=== PATIENT | male | born 1990 | race Caucasian/White ===

== ENCOUNTER 2017-09-22 09:30 | Emergency (ER) | payer OTHER ==
[~2017-09-22] VITALS: Ht 177.8 cm; Wt 80.0 kg
[2017-09-22 09:36] VITALS: BP 133/80; PULSE 97; RESP 16; TEMP 98.7; O2SAT 97
[2017-09-22] MEDS ORDERED: GELATIN 12 MM/7 MM FOAM TOPICAL ONE (10:00)
--- NOTE | 2017-09-22 10:29 | PD ---
HPI Chief Complaint: Laceration/Skin Injury Time Seen by Provider: 09:47 Travel History International Travel<30 days: No Contact w/Intl Traveler<30days: No Traveled to known affect area: No History of Present Illness HPI 27-year-old male with laceration to the right pinky toe. Patient reports he dropped a heavy table onto the toe yesterday at approximately 12 PM the area has continued to bleed prompting his visit today. He denies pain in the toe. He reports his tetanus immunization is up-to-date. He does not believe he broke toe. It was a glass table that fell onto the toe but the glass did not shatter. He does not believe there is foreign body. He is refusing x-rays. [facility] Past Medical History Medical History: Denies Significant Hx Influenza Vaccination: No Past Surgical History Surgical History: No Previous Surgery Social History Alcohol Use: Yes (occ) Tobacco Use: Yes (/ ppd) Substance Use: No Allergies-Medications (Allergen,Severity, Reaction): Coded Allergies: No Known Allergies (Unverified , 09/22/17) Reported Meds & Prescriptions Reported Meds & Active Scripts Active No Active Prescriptions or Reported Medications Review of Systems Except as stated in HPI: all other systems reviewed are Neg Physical Exam Narrative GENERAL: Alert male in no distress. SKIN: Warm and dry.1 CM laceration to the medial aspect of the right pinky toe. HEAD: Normocephalic. EYES: No scleral icterus. No injection or drainage. NECK: Supple, trachea midline. No JVD or lymphadenopathy. MUSCULOSKELETAL: No cyanosis, or edema. Right lower extremity: 1 cm laceration to the medial aspect of the right fifth digit. Active bleeding present. No foreign body visualized. No bony tenderness in the digit. Deformity. Normal sensation and brisk cap refill. Data Data Last Documented VS Vital Signs Date Time Temp Pulse Resp B/P (MAP) Pulse Ox O2 Delivery O2 Flow Rate FiO2 09/22/17 09:36 98.7 97 16 133/80 (97) 97 Orders Orders Gelatin 12 Mm/7 Mm Top (Gelfoam 12 Mm/7 (09/22/17 10:00) MDM Medical Decision Making Medical Screen Exam Complete: Yes Emergency Medical Condition: Yes Differential Diagnosis To laceration, toe fracture, contusion Narrative Course 27-year-old male with a laceration to the right fifth toe after table fell onto the foot yesterday afternoon. The area has continued to bleed prompting his visit today. He has a 1 cm laceration to the right fifth digit. There is no bony tenderness. No deformity. Patient declined x-rays. Hemostasis was achieved using Gelfoam and sterile dressing. Patient instructed to leave the dressing in place for 24 hours. Stay off the foot. Follow-up with his doctor. He was offered prophylactic antibiotics for an open wound. Patient declined. Risks were discussed. Patient verbalizes understanding. Agrees to return if he develops signs or symptoms of infection. Diagnosis Primary Impression: Toe laceration Qualified Codes: S91.114A - Laceration without foreign body of right lesser toe(s) without damage to nail, initial encounter Referrals: [facility] Departure Forms: Tests/Procedures, Work Release Enter return to work date: Sep 25, 2017 Additional Instructions: Keep the dressing in place for 24 hours. Elevate the extremity and avoid prolonged standing. Return if he developed new or worsening symptoms. Scripts No Active Prescriptions or Reported Meds Disposition: 01 DISCHARGE HOME Condition: Stable Beth Nowak Sep 22, 2017 10:29
== END 2017-09-22 10:40 | disposition home or self-care (01) ==
LOC: PHEFT 09:30
DX: S91.114A Laceration without foreign body of right lesser toe(s) without damage to nail, initial encounter (principal); W20.8XXA Other cause of strike by thrown, projected or falling object, initial encounter
CPT/HCPCS: 12001; 99282